=== PATIENT | male | born 1980 | race Caucasian/White ===

== ENCOUNTER 2016-07-03 07:58 | Emergency (ER) | payer OTHER ==
[~2016-07-03] VITALS: Ht 175.3 cm; Wt 67.9 kg
[~2016-07-03 07:58] MED LIST: BENZTROPINE MESY1 MG PO; CLONAZEPAM1 MG PO; COGENTIN0.5 MG PO; DIVALPROEX SOD500 M1 PO; HALDOL DEC100 MG/1 M IM; HALDOL DECON50 MG/ML IM; HALDOL10 MG PO; HALDOL5 MG PO; HYDROXYZINE PAM50 MG PO; Haldol Decanoate IM; LAMICTAL100 MG PO; LAMICTAL150 M1 PO; LAMICTAL25 MG PO; LAMOTRIGINE100 MG PO; LAMOTRIGINE200 MG PO; LITHIUM CARBON600 MG PO; LITHOBID300 MG PO; RISPERDAL2 MG PO; RISPERIDONE2 MG PO; RISPERIDONE3 MG PO; RISPERIDONE4 MG PO; TRIPLE ANTIB28.35 GM TP; ZYPREXA20 MG PO; ZYPREXA5 MG PO
[2016-07-03 09:41] LABS: HEMATOCRIT 48.7 % (38.0-50.0); MCH 30.7 PG (29.0-34.0); MCHC 34.1 G/DL (30.0-36.0); MEAN PLAT.VOLUME 10.4 uM^3 (9.0-12.4); PLATELET COUNT 197 K/uL (156-360); RBC DIS.WIDTH-CV 12.8 % (11.8-14.6); RBC DIS.WIDTH-SD 42.5 % (39-53); RED BLOOD COUNT 5.41 M/uL (4.00-5.50); WHITE BLOOD COUNT 11.3 K/uL (4.1-10.2)
[2016-07-03 09:52] LABS: CHLORIDE 107 mEq/L (99-109); POTASSIUM 4.1 mEq/L (3.7-5.4); SODIUM 142 mEq/L (136-147)
[2016-07-03 09:55] LABS: ANION GAP 11 MEQ/L (2-14); GLUCOSE 98 mg/dL (70-99)
[2016-07-03 09:56] LABS: TOTAL BILIRUBIN 0.8 mg/dL (0.0-1.0)
[2016-07-03 09:57] LABS: SERUM ETHYL ALCOHOL < 10 mg/dL
[2016-07-03 09:58] LABS: ALKALINE PHOSPHATASE 62 IU/L (3-129); GFR ESTIMATE (CALCULATED) > 59 mL/min/
[2016-07-03 09:59] LABS: UREA NITROGEN (BUN) 10 mg/dL (9-23)
[2016-07-03] MEDS ORDERED: RISPERIDONE2 MG PO (13:29)
[2016-07-03 13:50] VITALS: BP 129/87
[2016-07-03 14:13] LABS: AMPHETAMINE NEGATIVE (500 ng/mL); BARBITURATES NEGATIVE (200 ng/mL); BENZODIAZEPINES NEGATIVE (150 ng/mL); COCAINE NEGATIVE (150 ng/mL); INTERNAL CONTROLS VALID? YES; METHADONE NEGATIVE (200 ng/mL); METHAMPHETAMINE NEGATIVE (500 ng/mL); OPIATES (MORPHINE) NEGATIVE (100 ng/mL); OXYCODONE NEGATIVE (100 ng/mL); PHENCYCLIDINE NEGATIVE (25 ng/mL); PROPOXYPHENE NEGATIVE (300 ng/mL); THC CANNABINOIDS NEGATIVE (50 ng/mL); TRICYCLIC ANTIDEPRESSANTS NEGATIVE (300 ng/mL)
== END 2016-07-03 13:56 | disposition home or self-care (01) ==
LOC: EME 07:58
PROVIDERS: Nurse Practitioner Family
DX: F29 Unspecified psychosis not due to a substance or known physiological condition (principal); F20.9 Schizophrenia, unspecified; G47.00 Insomnia, unspecified; J45.909 Unspecified asthma, uncomplicated; F31.9 Bipolar disorder, unspecified; F17.200 Nicotine dependence, unspecified, uncomplicated
CPT/HCPCS: 80053; 85027; 90839; 99281; 99285; G0480

== ENCOUNTER 2016-09-09 05:34 | Emergency (ER) | payer OTHER ==
[~2016-09-09] VITALS: Ht 175.3 cm; Wt 65.3 kg
[2016-09-09 07:18] LABS: BASOPHIL COUNT 0.1 K/uL (0-0.1); EOSINOPHIL (%) 1.5 % (0-5); EOSINOPHIL COUNT 0.1 K/uL (0-0.3); HEMATOCRIT 46.4 % (38.0-50.0); IMMATURE GRANULOCYTE (%) 0.4 % (0.0-0.7); INSTRUMENT ABS NEUTROPHIL CT 5.2 K/uL; MCH 30.9 PG (29.0-34.0); MCHC 33.8 G/DL (30.0-36.0); MCV 91.3 FL (86-99); MEAN PLAT.VOLUME 10.5 uM^3 (9.0-12.4); MONOCYTE (%) 8.2 % (3-12); MONOCYTE COUNT 0.7 K/uL (0-0.8); NEUTROPHIL (%) 64.1 % (45-76); NEUTROPHIL COUNT 5.2 K/uL (1.8-6.4); PLATELET COUNT 234 K/uL (156-360); RBC DIS.WIDTH-CV 12.9 % (11.8-14.6); RBC DIS.WIDTH-SD 43.4 % (39-53); RED BLOOD COUNT 5.08 M/uL (4.00-5.50)
[2016-09-09 07:38] LABS: ADD MIUA? YES; BILIRUBIN NEGATIVE; BLOOD MODERATE; COLOR STRAW ((YELLOW)); GLUCOSE (STRIP) NEGATIVE; KETONES NEGATIVE; LEUKOCYTES NEGATIVE; NITRITE NEGATIVE; PROTEIN (STRIP) NEGATIVE; SPECIFIC GRAVITY 1.004 (1.000-1.030); UROBILINOGEN 0.2 MG/DL (0.2-1.0)
[2016-09-09 07:41] LABS: BACTERIA NONE SEEN /HPF; EPITHELIAL CELLS RARE /HPF; MUCUS NONE SEEN /LPF; RED BLOOD CELLS 0-5 /HPF (0-5); WHITE BLOOD CELLS 0-5 /HPF (0-5)
[2016-09-09 07:45] LABS: ANION GAP 7 MEQ/L (2-14); CHLORIDE 108 MEQ/L (99-109); SAMPLE HEMOLYSIS CHECK 0; SAMPLE ICTERIC CHECK 0; SAMPLE LIPEMIA CHECK 0; SODIUM 142 MEQ/L (136-147)
[2016-09-09 07:48] LABS: AMPHETAMINE NEGATIVE (500 ng/mL); BARBITURATES NEGATIVE (200 ng/mL); BENZODIAZEPINES NEGATIVE (150 ng/mL); COCAINE NEGATIVE (150 ng/mL); INTERNAL CONTROLS VALID? YES; METHADONE NEGATIVE (200 ng/mL); METHAMPHETAMINE NEGATIVE (500 ng/mL); OPIATES (MORPHINE) NEGATIVE (100 ng/mL); OXYCODONE NEGATIVE (100 ng/mL); PHENCYCLIDINE NEGATIVE (25 ng/mL); PROPOXYPHENE NEGATIVE (300 ng/mL); THC CANNABINOIDS NEGATIVE (50 ng/mL); TRICYCLIC ANTIDEPRESSANTS NEGATIVE (300 ng/mL)
[2016-09-09 07:50] LABS: GFR ESTIMATE (CALCULATED) > 59 mL/min/; GLUCOSE 88 mg/dL (70-99); UREA NITROGEN (BUN) 10 mg/dL (9-23)
[2016-09-09 09:57] VITALS: BP 136/82
== END 2016-09-09 09:58 | disposition home or self-care (01) ==
LOC: EME 05:34
PROVIDERS: Emergency Medicine
DX: R51 Headache (principal); F17.200 Nicotine dependence, unspecified, uncomplicated
CPT/HCPCS: 70450; 80048; 81003; 85025; 99281; 99283

== ENCOUNTER 2017-04-06 20:04 | Emergency (ER) | payer OTHER ==
[~2017-04-06] VITALS: Ht 175.3 cm; Wt 66.3 kg
[2017-04-07 00:43] LABS: HEMATOCRIT 42.9 % (38.0-50.0); MCH 32.1 PG (29.0-34.0); MCV 91.9 FL (86-99); PLATELET COUNT 231 K/uL (156-360); RBC DIS.WIDTH-CV 12.9 % (11.8-14.6); RBC DIS.WIDTH-SD 42.9 % (39-53); RED BLOOD COUNT 4.67 M/uL (4.00-5.50); WHITE BLOOD COUNT 12.5 K/uL (4.1-10.2)
[2017-04-07 00:55] LABS: CHLORIDE 108 mEq/L (99-109); POTASSIUM 3.3 mEq/L (3.7-5.4); SODIUM 142 mEq/L (136-147)
[2017-04-07 00:57] LABS: GLUCOSE 92 mg/dL (70-99)
[2017-04-07 01:00] LABS: SERUM ETHYL ALCOHOL < 10 mg/dL
[2017-04-07 01:01] LABS: CREATININE 0.9 mg/dL (0.6-1.3); GFR ESTIMATE (CALCULATED) > 59 mL/min/ (58.99-99999)
[2017-04-07 01:02] LABS: UREA NITROGEN (BUN) 7 mg/dL (9-23)
[2017-04-07] MEDS ORDERED: HALDOL5 MG PO (01:04)
[2017-04-07] MEDS ORDERED: TINACTIN150 GM TP (01:04)
[2017-04-07 01:40] VITALS: BP 164/122
[2017-04-08] MEDS ORDERED: ABILIFY2 MG PO (10:08)
[2017-04-08] MEDS ORDERED: TRAZODONE HCL50 MG PO (10:09)
== END 2017-04-07 01:40 | disposition home or self-care (01) ==
LOC: EME 20:04
PROVIDERS: Emergency Medicine
DX: F25.1 Schizoaffective disorder, depressive type (principal); B35.3 Tinea pedis; J45.909 Unspecified asthma, uncomplicated; F32.9 Major depressive disorder, single episode, unspecified; F17.200 Nicotine dependence, unspecified, uncomplicated
CPT/HCPCS: 80048; 81003; 85027; 90839; 99281; 99283; G0480

== ENCOUNTER 2017-04-08 09:24 | Emergency (ER) | payer OTHER ==
[~2017-04-08] VITALS: Ht 175.3 cm; Wt 64.6 kg
[~2017-04-08 09:24] MED LIST changes: +TINACTIN150 GM TP
[2017-04-08 10:07] LABS: BASOPHIL (%) 0.4 % (0-1); BASOPHIL COUNT 0.1 K/uL (0-0.1); EOSINOPHIL (%) 0.1 % (0-5); HEMATOCRIT 43.7 % (38.0-50.0); IMMATURE GRANULOCYTE (%) 0.4 % (0.0-0.7); LYMPHOCYTE COUNT 1.4 K/uL (1.0-2.8); MCHC 34.3 G/DL (30.0-36.0); MCV 93.2 FL (86-99); MONOCYTE (%) 6.4 % (3-12); MONOCYTE COUNT 0.7 K/uL (0-0.8); NEUTROPHIL (%) 80.7 % (45-76); NEUTROPHIL COUNT 9.2 K/uL (1.8-6.4); PLATELET COUNT 231 K/uL (156-360); RBC DIS.WIDTH-CV 13.1 % (11.8-14.6); RBC DIS.WIDTH-SD 44.3 % (39-53); RED BLOOD COUNT 4.69 M/uL (4.00-5.50); WHITE BLOOD COUNT 11.4 K/uL (4.1-10.2)
[2017-04-08] MEDS ORDERED: ABILIFY2 MG PO (10:08)
[2017-04-08] MEDS ORDERED: TRAZODONE HCL50 MG PO (10:09)
[2017-04-08 10:14] LABS: CHLORIDE 107 mEq/L (99-109); POTASSIUM 3.9 mEq/L (3.7-5.4); SODIUM 142 mEq/L (136-147)
[2017-04-08 10:16] LABS: GLUCOSE 102 mg/dL (70-99)
[2017-04-08 10:19] LABS: SERUM ETHYL ALCOHOL < 10 mg/dL
[2017-04-08 10:20] LABS: CREATININE 0.9 mg/dL (0.6-1.3); GFR ESTIMATE (CALCULATED) > 59 mL/min/ (58.99-99999); UREA NITROGEN (BUN) 10 mg/dL (9-23)
[2017-04-08 11:18] LABS: APPEARANCE CLEAR ((CLEAR)); BILIRUBIN NEGATIVE; BLOOD MODERATE; COLOR YELLOW ((YELLOW)); GLUCOSE (STRIP) NEGATIVE; KETONES NEGATIVE; LEUKOCYTES NEGATIVE; NITRITE NEGATIVE; PROTEIN (STRIP) 30; SPECIFIC GRAVITY 1.011 (1.000-1.030); UROBILINOGEN 0.2 MG/DL (0.2-1.0)
[2017-04-08 11:30] LABS: BACTERIA RARE /HPF; EPITHELIAL CELLS NONE SEEN /HPF; MUCUS TRACE /LPF; WHITE BLOOD CELLS 0-5 /HPF (0-5)
[2017-04-08 11:33] LABS: AMPHETAMINE NEGATIVE (500 ng/mL); BARBITURATES NEGATIVE (200 ng/mL); BENZODIAZEPINES NEGATIVE (150 ng/mL); BUPRENORPHINE NEGATIVE (10 ng/mL); COCAINE NEGATIVE (150 ng/mL); METHADONE NEGATIVE (200 ng/mL); METHAMPHETAMINE NEGATIVE (500 ng/mL); OPIATES (MORPHINE) NEGATIVE (100 ng/mL); OXYCODONE NEGATIVE (100 ng/mL); PHENCYCLIDINE NEGATIVE (25 ng/mL); PROPOXYPHENE NEGATIVE (300 ng/mL); THC CANNABINOIDS NEGATIVE (50 ng/mL); TRICYCLIC ANTIDEPRESSANTS NEGATIVE (300 ng/mL)
[2017-04-08 12:59] VITALS: BP 150/83
== END 2017-04-08 13:06 | disposition home or self-care (01) ==
LOC: EME 09:24
PROVIDERS: Emergency Medicine
DX: F25.0 Schizoaffective disorder, bipolar type (principal); F41.9 Anxiety disorder, unspecified; F32.9 Major depressive disorder, single episode, unspecified; J45.909 Unspecified asthma, uncomplicated; F17.200 Nicotine dependence, unspecified, uncomplicated; Z59.0 Homelessness; Z91.5 Personal history of self-harm; Z88.8 Allergy status to other drugs, medicaments and biological substances
CPT/HCPCS: 80048; 81003; 85025; 90837; 99281; 99284; G0480

== ENCOUNTER 2017-04-15 22:52 | Inpatient (IN) | payer OTHER ==
[~2017-04-15] VITALS: Ht 175.3 cm; Wt 62.9 kg
[~2017-04-15 22:52] MED LIST changes: +ABILIFY2 MG PO; +TRAZODONE HCL50 MG PO
[2017-04-15 23:38] LABS: HEMOGLOBIN 13.3 G/DL (12.5-16.6); MCH 31.8 PG (29.0-34.0); MCHC 34.1 G/DL (30.0-36.0); MCV 93.3 FL (86-99); PLATELET COUNT 205 K/uL (156-360); RBC DIS.WIDTH-CV 13.1 % (11.8-14.6); RBC DIS.WIDTH-SD 44.9 % (39-53); RED BLOOD COUNT 4.18 M/uL (4.00-5.50)
[2017-04-15 23:46] LABS: ALBUMIN 3.8 g/dL (3.2-4.8); CHLORIDE 106 mEq/L (99-109); POTASSIUM 3.5 mEq/L (3.7-5.4); SODIUM 142 mEq/L (136-147)
[2017-04-15 23:48] LABS: GLUCOSE 95 mg/dL (70-99)
[2017-04-15 23:49] LABS: TOTAL PROTEIN 6.5 g/dL (6.4-8.3)
[2017-04-15 23:50] LABS: TOTAL BILIRUBIN 0.8 mg/dL (0.0-1.0)
[2017-04-15 23:51] LABS: SERUM ETHYL ALCOHOL < 10 mg/dL
[2017-04-15 23:52] LABS: ALKALINE PHOSPHATASE 63 IU/L (3-129); CREATININE 0.8 mg/dL (0.6-1.3); GFR ESTIMATE (CALCULATED) > 59 mL/min/ (58.99-99999)
[2017-04-15 23:53] LABS: UREA NITROGEN (BUN) 9 mg/dL (9-23)
[2017-04-15 23:54] LABS: AST (GOT) 32 IU/L (2-34)
[2017-04-15 23:55] LABS: ALT (GPT) 28 IU/L (3-49)
[2017-04-16 02:08] VITALS: BP 112/72
[2017-04-16 07:56] VITALS: BP 107/57
[2017-04-16 15:55] VITALS: BP 100/59
[2017-04-17 07:58] VITALS: BP 93/51
[2017-04-17 15:37] VITALS: BP 96/53
[2017-04-18 07:44] VITALS: BP 100/55
[2017-04-18 15:36] VITALS: BP 89/53
[2017-04-19 08:13] VITALS: BP 97/58
[2017-04-19] MEDS ORDERED: HALDOL5 MG PO (08:37)
[2017-04-19] MEDS ORDERED: COGENTIN0.5 MG PO (08:37)
== END 2017-04-19 08:44 | disposition home or self-care (01) | DRG 885 ==
LOC: EME 22:52 → EDOF 04-16 00:14 → 1WEST 04-16 00:14 → ENRESERV 04-16 00:59 → 1WEST 04-16 01:31
PROVIDERS: Emergency Medicine
DX: F25.9 Schizoaffective disorder, unspecified (principal); R45.851 Suicidal ideations; Z91.14 Patient's other noncompliance with medication regimen; Z91.19 Patient's noncompliance with other medical treatment and regimen; F31.9 Bipolar disorder, unspecified; F12.10 Cannabis abuse, uncomplicated; Z59.0 Homelessness; F17.200 Nicotine dependence, unspecified, uncomplicated; J45.909 Unspecified asthma, uncomplicated; Z81.8 Family history of other mental and behavioral disorders
CPT/HCPCS: 80053; 85027; 90839; 99281; 99285; G0480; J1631